=== PATIENT | female | born 1945 | race Caucasian/White ===

== ENCOUNTER 2017-11-16 13:13 | Emergency (ER) | payer OTHER ==
[2017-11-16 13:13] VITALS: BMI 30.2
--- NOTE | 2017-11-16 14:07 | C.PDOC ---
History Of Present Illness 72 year old female patient with PSHx knee surgery and PMHx of HTN presents to the ER with c/o elevated BP despite taking HTN medication. Patient reports she has been away in [place] and was not able to take her blood pressure medications. Patient reports when she came back a week ago, her PCP gave her new blood pressure medication: Cartia XT 180mg, which she has been taking regularly. Patient states she does not feel well c/o swelling off her face every morning, however, resolving throughout the day. She notes her left leg and ankle swelling but states this has been chronic for the past year and thinks it is related to prior surgery. Patient denies chest pain, palpitation, SOB, dizziness and lightheadedness. Patient also notes she tried seeing her PCP yesterday, but the office sign said they were closed. Time Seen by Provider: 11/16/17 13:51 Chief Complaint (Nursing): High Blood Pressure History Per: Patient History/Exam Limitations: no limitations Onset/Duration Of Symptoms: Days (x1 week) Current Symptoms Are (Timing): Still Present Past Medical History Reviewed: Historical Data, Nursing Documentation, Vital Signs Vital Signs: Last Vital Signs Temp 98.9 F 11/16/17 13:23 Pulse 76 11/16/17 14:26 Resp 18 11/16/17 14:26 BP 141/68 11/16/17 14:26 Pulse Ox 98 11/16/17 14:49 - Medical History PMH: Anxiety, Arthritis, Depression, HTN - [facility] Procedures HOME MANAGEMENT TREATMENT (03/05/15) REPLACEMENT OF LEFT KNEE JOINT WITH SYNTH SUB, OPEN APPROACH (02/25/15) THERAPEUTIC EXERCISE TREATMENT OF MUSCULOSK WHOLE (03/05/15) Family History: States: No Known Family Hx - Social History Hx Alcohol Use: No Hx Substance Use: No - Immunization History Hx Tetanus Toxoid Vaccination: No Hx Influenza Vaccination: Yes Hx Pneumococcal Vaccination: Yes Review Of Systems Cardiovascular: Negative for: Chest Pain, Palpitations Respiratory: Negative for: Shortness of Breath Skin: Positive for: Other (swelling of face, left ankle and leg) Neurological: Negative for: Dizziness, Other (lightheadedness) Physical Exam - Physical Exam Appears: Well, Non-toxic, No Acute Distress Skin: Normal Color, Warm, Dry Head: Atraumatic, Normacephalic Eye(s): bilateral: Normal Inspection Ear(s): Bilateral: Normal Neck: Normal ROM, Supple Chest: Symmetrical, No Deformity Cardiovascular: Rhythm Regular Respiratory: Normal Breath Sounds Gastrointestinal/Abdominal: Bowel Sounds, No Soft Back: No CVA Tenderness Extremity: Normal ROM (x4 ), No Tenderness, Pedal Edema (mild in left leg), No Calf Tenderness, No Deformity Pulses: Left Dorsalis Pedis: Normal, Right Dorsalis Pedis: Normal Neurological/Psych: Oriented x3, Normal Speech, Normal Motor, Normal Sensation, Normal Reflexes Gait: Steady ED Course And Treatment - Laboratory Results Result Diagrams: 11/16/17 14:24 11/16/17 14:24 Lab Interpretation: No Acute Changes ECG: Interpreted By Ct ECG Rhythm: Sinus Rhythm (with prolonged QT) ECG Interpretation: No Acute Changes O2 Sat by Pulse Oximetry: 98 (RA) Pulse Ox Interpretation: Normal - Radiology CXR: Interpreted by Me CXR Interpretation: Yes: Other (mild vascular congestion) - Other Rad CXR X-Ray: Read By Radiologist Interpretation: Accession No. : [id number]. Patient Name / ID : JELANI BOYD R / [id number]. Exam Date : 11/16/2017 13:57:54 ( Approved ). Study Comment : Sex / Age : F / 72Y. Creator : Birgit Coleman MD. Dictator : Birgit Coleman MD. Pole Lift Operator : Nurses' Registry Director : Birgit Coleman MD. Approver2 : Report Date : 11/16/2017 14:18:43. My Comment : . Date of service: 11/16/2017. PROCEDURE: CHEST RADIOGRAPH, 1 VIEW. HISTORY: SOB. COMPARISON: 03/04/2015. FINDINGS: LUNGS: The is low lung volume. No focal consolidation. PLEURA: No pneumothorax or pleural fluid seen. CARDIOVASCULAR : Normal. 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 VISUALIZED UPPER ABDOMEN: Normal. OTHER FINDINGS: None. IMPRESSION: No acute findings. Progress Note: Patient improved in ED. BP 141/68 and she remains asymptomatic. Reevaluation Time: 15:50 Reassessment Condition: Improved Medical Decision Making Medical Decision Making: Impression: non-relieving HTN medication Plans: -- EKG -- blood work -- CXR -- UA On re-eval, pt is afebrile, hemodynamically stable. Non-toxic. PulseOx 98% on RA. ENT: no acute findings. Uvula midline. Neck: Supple, (-) JVD. Lungs: CTA B/L, BS equal B/L. Abd: Soft, non-tender. Neurologically intact. Disposition Counseled Patient/Family Regarding: Studies Performed, Diagnosis, Need For Followup, Rx Given - Disposition Referrals: Carlos A Pradhan MD [Medical Doctor] - Disposition: HOME/ ROUTINE Disposition Time: 15:51 Condition: IMPROVED Additional Instructions: Continue prior medications as prescribed. Prescriptions: Hydrochlorothiazide [Microzide] 12.5 mg PO DAILY #60 cap Instructions: Low Salt Diet, High Blood Pressure in Adults Forms: [employer] ([employer]) - Clinical Impression Clinical Impression: Hypertension - Scribe Statement The provider has reviewed the documentation as recorded by the Melaniaibmichela Fong Do Provider Attestation: All medical record entries made by the Scribe were at my direction and personally dictated by me. I have reviewed the chart and agree that the record accurately reflects my personal performance of the history, physical exam, medical decision making, and the department course for this patient. I have also personally directed, reviewed, and agree with the discharge instructions and disposition.
--- NOTE | 2017-11-16 14:20 | RAD ---
Date of service: 11/16/2017 PROCEDURE: CHEST RADIOGRAPH, 1 VIEW HISTORY: SOB COMPARISON: 03/04/2015 FINDINGS: LUNGS: The is low lung volume. No focal consolidation. PLEURA: No pneumothorax or pleural fluid seen. CARDIOVASCULAR: Normal. 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 VISUALIZED UPPER ABDOMEN: Normal. OTHER FINDINGS: None. IMPRESSION: No acute findings.
[2017-11-16 14:28] LABS: BASO # 0.1 K/uL (0.0-0.2); BASO % 1.1 % (0.0-2.0); EOS # 0.2 K/uL (0.0-0.7); EOS % 3.6 % (0.0-4.0); HEMOGLOBIN 11.5 g/dL (11.0-16.0); LYMPH # 1.5 K/uL (1.0-4.3); LYMPH % 22.8 % (20.0-40.0); MEAN CELL VOLUME 93.9 fL (81.0-99.0); MEAN CORPUSCULAR HEMOGLOBIN 31.2 pg (27.0-31.0); MEAN CORPUSCULAR HGB CONC 33.3 g/dL (33.0-37.0); MEAN PLATELET VOLUME 11.9 fL (7.2-11.7); MONO # 0.5 K/uL (0.0-0.8); MONO % 7.5 % (0.0-10.0); NEUT # 4.4 K/uL (1.8-7.0); RBC 3.7 Mil/uL (3.80-5.20); RED CELL DISTRIBUTION WIDTH 13.1 % (11.5-14.5); WHITE BLOOD COUNT 6.7 K/uL (4.8-10.8)
[2017-11-16 14:31] LABS: SQUAMOUS EPITHIAL 1 /hpf (0-5); URINE BACTERIA RARE (<OCC); URINE BILIRUBIN NEGATIVE (NEGATIVE); URINE BLOOD NEGATIVE (NEGATIVE); URINE CLARITY Clear (Clear); URINE COLOR Yellow (YELLOW); URINE GLUCOSE (UA) NORMAL (Normal); URINE LEUKOCYTE ESTERASE NEG Leu/uL (Negative); URINE PROTEIN NEGATIVE (NEGATIVE); URINE UROBILINOGEN NORMAL mg/dL (0.2-1.0)
[2017-11-16 14:42] VITALS: O2SAT 98
[2017-11-16 15:02] LABS: BLOOD UREA NITROGEN 24 mg/dL (7-17)
[2017-11-16 15:03] LABS: ALB/GLOB RATIO 1.3 (1.0-2.1); ALBUMIN 4.1 g/dL (3.5-5.0); CALCIUM 9.1 mg/dl (8.6-10.4); GFR AFRICAN-AMERICAN > 60; GFR NON-AFRICAN AMERICAN > 60
[2017-11-16 15:04] LABS: ALT/SGPT 16 U/L (9-52); AST/SGOT 35 U/L (14-36); B-TYPE NATRIURETIC PEPTIDE 334 pg/mL (0-900)
[2017-11-16 16:07] VITALS: BP 151/71; PULSE 69; RESP 13; TEMP 97.9
--- NOTE | 2017-11-20 23:56 | CARD ---
APPROVED REPORT Date of service: 11/16/2017 EKG Measurement Heart [id number] <Conclusion> Normal sinus rhythm Normal ECG
== END 2017-11-16 16:11 | disposition home or self-care (01) ==
LOC: C.ER 13:13
DX: I10 Essential (primary) hypertension (principal)